=== PATIENT | male | born 1980 ===

== ENCOUNTER 2019-10-22 02:54 | Emergency (ER) | payer SELFPAY ==
[~2019-10-22] VITALS: Ht 180.3 cm; Wt 104.5 kg
[2019-10-22] MEDS: KETOROLAC TROMETHAMINE 60 MG/2 ML VIAL IM ONE ×2 (03:27→03:34)
[2019-10-22] MEDS ORDERED: ONDANSETRON HCL 4 MG/2 ML VIAL IM ONE (03:30)
[2019-10-22] MEDS ORDERED: PredniSONE 20 MG TABLET PO ONE (03:30)
[2019-10-22 05:15] VITALS: BP 117/76
== END 2019-10-22 05:35 | disposition home or self-care (01) ==
LOC: EMS 02:54
DX: M54.41 Lumbago with sciatica, right side (principal); F17.210 Nicotine dependence, cigarettes, uncomplicated; F15.90 Other stimulant use, unspecified, uncomplicated; Z90.49 Acquired absence of other specified parts of digestive tract; W01.0XXA Fall on same level from slipping, tripping and stumbling without subsequent striking against object, initial encounter; Y93.89 Activity, other specified; Y92.89 Other specified places as the place of occurrence of the external cause; Y99.8 Other external cause status
CPT/HCPCS: 72100; 73502; J1885